=== PATIENT | male | born 1950 | race Caucasian/White ===

== ENCOUNTER 2020-03-01 09:08 | Emergency (ER) | payer OTHER ==
--- NOTE | 2020-03-01 09:52 | RAD REPORT ---
EXAM DESCRIPTION: CT - Head Brain Wo Cont - 03/01/2020 9:47 am CLINICAL HISTORY: Blurry vision Headache, drowsiness COMPARISON: No comparisons TECHNIQUE: All CT scans are performed using dose optimization technique as appropriate and may inclu de automated exposure control or mA/KV adjustment according to patient size. FINDINGS: No intracranial hemorrhage, hydrocephalus or extra-axial fluid collection.Mild brain atrop hy.No areas of brain edema or evidence of midline shift. The paranasal sinuses and mastoids are clear. The calvarium is intact. IMPRESSION: No acute intracranial abnormality.
[2020-03-01 10:21] LABS: Absolute Lymphocytes (CBC) 0.6 K/uL (0.7-4.9); Basophils % 0.4 % (0-1.3); Hematocrit 47.2 % (39.6-49.0); Lymphocytes % 10.6 % (15.3-44.8); MPV 9.1 fL (7.6-11.3); RBC Red Blood Cell Count 5.21 M/uL (4.33-5.43)
[2020-03-01 10:28] LABS: Protime INR 1.05
[2020-03-01] MEDS ORDERED: FLUORESCEIN SODIUM 1 MG/WRAP ONE (10:30)
[2020-03-01] MEDS ORDERED: TETRACAINE HCL 0.5% 4ML OPTH ONE (10:30)
[2020-03-01 10:34] LABS: Potassium 4.2 mmol/L (3.5-5.1)
--- NOTE | 2020-03-01 11:04 | ER ---
Nurse's Notes [facility] Name: Wade Price Age: 69 yrs Sex: Male : 1950 Arrival Date: 03/01/2020 Time: 09:12 Bed 8 Private MD: Diagnosis: Diplopia;Cerebral infarction Presentation: 03/01 09:29 Chief complaint: Patient states: yesterday around 0700 pt noticed that his vision was sv double/blurry right in front of his vision but not above or below his field of vision with both eyes. c/o temporal head pressure. Coronavirus screen: Client denies travel out of the [place] in the last 14 days. At this time, the client does not indicate any symptoms associated with coronavirus-19. The client reports previous COVID testing was negative. Date of collection: January 2020. Ebola Screen: No symptoms or risks identified at this time. Initial Sepsis Screen: Does the patient meet any 2 criteria? HR > 90 bpm. No. Patient's initial sepsis screen is negative. Does the patient have a suspected source of infection? No. Patient's initial sepsis screen is negative. Risk Assessment: Do you want to hurt yourself or someone else? Patient reports no desire to harm self or others. Onset of symptoms was February 29, 2020. 09:29 Method Of Arrival: Ambulatory sv 09:29 Acuity: RAMÓN 3 sv Historical: - Allergies: 09:33 No Known Allergies; sv - Home Meds: 09:33 finasteride 5 mg oral tab 1 tab once daily [Active]; Flomax 0.4 mg Oral cp24 1 cap once sv daily [Active]; lisinopril 10 mg Oral tab [Active]; Protonix 40 mg Oral TbEC [Active]; - PMHx: 09:33 Hypertension; enlarged prostate; sv - Immunization history:: Adult Immunizations unknown. - Social history:: Smoking status: unknown. Screenin:53 Abuse screen: Denies threats or abuse. Denies injuries from another. Nutritional hb screening: No deficits noted. Tuberculosis screening: No symptoms or risk factors identified. Fall Risk None identified. Assessment: 10:00 General: Appears in no apparent distress. comfortable, well groomed, Behavior is calm, ph cooperative, appropriate for age, Denies fever, feeling ill. Pain: Complains of pain in right evangelical and left evangelical Pain currently is 2 out of 10 on a pain scale. Neuro: Level of Consciousness is awake, alert, obeys commands, Oriented to person, place, time, situation, Reports blurred vision headache. Cardiovascular: Capillary refill < 3 seconds in bilateral fingers Patient's skin is warm and dry. Respiratory: Airway is patent Respiratory effort is even, unlabored, Respiratory pattern is regular, symmetrical. EENT: Reports blurred vision. Derm: Skin is intact, is healthy with good turgor, Skin is pink, warm \\T\\ dry. Musculoskeletal: Circulation, motion, and sensation intact. Range of motion: intact in all extremities. 11:00 Reassessment: Patient appears in no apparent distress at this time. Patient and/or hb family updated on plan of care and expected duration. Pain level reassessed. Patient is alert, oriented x 3, equal unlabored respirations, skin warm/dry/pink. 11:54 Reassessment: Patient appears in no apparent distress at this time. Patient and/or hb family updated on plan of care and expected duration. Pain level reassessed. Patient is alert, oriented x 3, equal unlabored respirations, skin warm/dry/pink. 12:35 Reassessment: Patient appears in no apparent distress at this time. Patient and/or hb family updated on plan of care and expected duration. Pain level reassessed. Patient is alert, oriented x 3, equal unlabored respirations, skin warm/dry/pink. 12:49 Reassessment: Patient appears in no apparent distress at this time. Patient and/or ph family updated on plan of care and expected duration. Pain level reassessed. Patient is alert, oriented x 3, equal unlabored respirations, skin warm/dry/pink. Pt ambulated to restroom w/ steady gait, denies dizziness or weakness. 13:22 Reassessment: Attempted to call report to [facility], receiving nurse refused to take report, states, " We are at capacity and I can not take report.". Vital Signs: 09:29 BP 149 / 70; Pulse 116; Resp 16; Temp 99.2; Pulse Ox 99% ; Weight 95.25 kg; Height 5 sv ft. 10 in. (177.80 cm); 10:45 BP 147 / 77; Pulse 91; Resp 19; Pulse Ox 99% on R/A; hb 11:45 BP 137 / 81; Pulse 108; Resp 16; Pulse Ox 98% on R/A; hb 12:30 BP 140 / 88; Pulse 114; Resp 20; Pulse Ox 98% on R/A; Pain 0/10; hb 13:47 BP 137 / 86; Pulse 104; Resp 18; Temp 98.8; Pulse Ox 99% on R/A; ph 14:46 BP 146 / 84; Pulse 101; Resp 16; Temp 98.0; Pulse Ox 96% on R/A; ph 09:29 Body Mass Index 30.13 (95.25 kg, 177.80 cm) sv NIH Stroke Scale Scores: 11:49 NIHSS Score: 0 pm1 14:17 NIHSS Score: 0 pm1 ED Course: 09:12 Patient arrived in ED. rg4 09:19 Gonsalo Monsivais NP is PHCP. pm1 09:19 Srinivas Urena MD is Attending Physician. pm1 09:32 Triage completed. sv 09:33 Arm band placed on Patient placed in an exam room, on a stretcher. sv 09:47 CT Head Brain wo Cont In Process Unspecified. EDMS 10:00 Missed attempt(s): 20 gauge in right forearm. Bleeding controlled, band aid applied, dh3 catheter tip intact. 10:04 Initial lab(s) drawn, by me, sent to lab. Inserted saline lock: 20 gauge in right dh3 antecubital area, using aseptic technique. Blood collected. 10:10 EKG done, by ED staff, reviewed by Gonsalo Monsivais NP. 3 10:15 Josy Walker, RN is Primary Nurse. ph 11:23 Patient has correct armband on for positive identification. Pulse ox on. NIBP on. Door ph closed. Noise minimized. Warm blanket given. 11:25 No provider procedures requiring assistance completed. IV discontinued, intact, ph bleeding controlled, No redness/swelling at site. Pressure dressing applied. 12:33 initiated a transfer with CANELO Dao from the [facility] Transfer [place]. eb 12:[address] Suazo the paint roller winder compensation/benefits specialist for [facility] with Gonsalo Mosley for eb patient transfer consultation. 12:[address] Michel the hospitalist compensation/benefits specialist for [facility] with Gonsalo Mosley for eb patient transfer consultation. 12:50 administrative approval given by CANELO Dao/ patient has been accepted to [facility] eb [address] [place] bed 2462/ Dr. Michel has accepted the patient in transfer/ report to be called [phone]. Administered Medications: 10:30 Drug: Tetracaine Drops 0.5 % 1 drops Route: Ophthalmic; Site: both eyes; ph 14:47 Follow up: Response: No adverse reaction ph 12:49 Drug: Aspirin 325 mg Route: PO; ph 14:47 Follow up: Response: No adverse reaction ph 13:47 Drug: Lipitor 80 mg Route: PO; ph 14:47 Follow up: Response: No adverse reaction ph Outcome: 11:04 Discharge ordered by MD. pm1 12:04 ER care complete, transfer ordered by . pm1 14:44 Patient left the ED. sv 14:44 Transferred by ground EMS [facility]. to [facility], Transfer ph form completed. X-rays sent w/ patient. 14:44 Condition: good 14:44 Instructed on the need for transfer. NIH Stroke Scale - NIH Stroke Score Date: 03/01/2020 Time: 11:49 Total Score = 0 1a. Level of Consciousness (LOC) - 0(Alert) 1b. Level of Consciousness (LOC) (Year \\T\\ Age) - 0(Both) 1c. LOC Commands (Open \\T\\ Closes Eyes/Sheet Rock Installer) - 0(Both) 2. Best Gaze (Lateral Gaze Paresis) - 0(Normal) 3. Visual Field Loss - 0(No visual loss) 4. Facial Palsy - 0(Normal) 5a. Left Arm: Motor (10-second hold) - 0(No drift) 5b. Right Arm: Motor (10-second hold) - 0(No drift) 6a. Left Leg: Motor (5-second hold - always test supine) - 0(No drift) 6b. Right Leg: Motor (5-second hold - always test supine) - 0(No drift) 7. Limb Ataxia (finger/nose \\T\\ heel/lorenz - test with eyes open) - 0(Absent) 8. Sensory Loss (pinprick arms/legs/face) - 0(Normal) 9. Best Language: Aphasia (description/naming/reading) - 0(No aphasia) 10. Dysarthria (speech clarity - read or repeat words) - 0(Normal) 11. Extinction and Inattention (visual/tactile/auditory/spatial/personal) - 0(No abnormality) Initials: pm1 NIH Stroke Scale - NIH Stroke Score Date: 03/01/2020 Time: 14:17 Total Score = 0 1a. Level of Consciousness (LOC) - 0(Alert) 1b. Level of Consciousness (LOC) (Year \\T\\ Age) - 0(Both) 1c. LOC Commands (Open \\T\\ Closes Eyes/Sheet Rock Installer) - 0(Both) 2. Best Gaze (Lateral Gaze Paresis) - 0(Normal) 3. Visual Field Loss - 0(No visual loss) 4. Facial Palsy - 0(Normal) 5a. Left Arm: Motor (10-second hold) - 0(No drift) 5b. Right Arm: Motor (10-second hold) - 0(No drift) 6a. Left Leg: Motor (5-second hold - always test supine) - 0(No drift) 6b. Right Leg: Motor (5-second hold - always test supine) - 0(No drift) 7. Limb Ataxia (finger/nose \\T\\ heel/lorenz - test with eyes open) - 0(Absent) 8. Sensory Loss (pinprick arms/legs/face) - 0(Normal) 9. Best Language: Aphasia (description/naming/reading) - 0(No aphasia) 10. Dysarthria (speech clarity - read or repeat words) - 0(Normal) 11. Extinction and Inattention (visual/tactile/auditory/spatial/personal) - 0(No abnormality) Initials: pm1 Signatures: Dispatcher [employer] Skylar Marsh RN RN Josy Walker RN RN ph Marinas, Patrick, JUMA CIRCULAR HEAD SAW OPERATOR pm1 Dimple Tanner RN RN hb Garcia, Rubi rg4 Herrera, Deanna 3 Sarahi Meza
--- NOTE | 2020-03-01 11:04 | EDPHYS ---
Physician Documentation [facility] Name: Wade Price Age: 69 yrs Sex: Male : 1950 Arrival Date: 03/01/2020 Time: 09:12 Bed 8 Private MD: ED Physician Srinivas Urena HPI: 03/01 09:46 This 69 yrs old Male presents to ER via Ambulatory with complaints of Vision pm1 Problem. 09:46 The patient is experiencing blurred vision, double vision, to both eyes, caused by an pm1 unknown mechanism. Onset: The symptoms/episode began/occurred while working on the yard, started with bilateral blurry vision. Duration: the symptoms are continuous. Aggravated by nothing. Alleviated by covering/ closing either eye. Associated signs and symptoms: Pertinent positives: headache, sinus congestion, post nasal drainage. Patient wears glasses. Severity of symptoms: in the emergency department the symptoms are unchanged. The patient has not experienced similar symptoms in the past. The patient has not recently seen a physician. Patient with onset of blurry vision while working on his house/yard on . He noticed that the grass appeared blurry. Woke up 7:00 AM and he had double vision with both eyes. False image appears above the actual object. Resolves with closing either eye. No eye pain, tearing , or swelling. Reports he possibly had some dirt in his eyes. Historical: - Allergies: 09:33 No Known Allergies; sv - Home Meds: 09:33 finasteride 5 mg oral tab 1 tab once daily [Active]; Flomax 0.4 mg Oral cp24 1 cap once sv daily [Active]; lisinopril 10 mg Oral tab [Active]; Protonix 40 mg Oral TbEC [Active]; - PMHx: 09:33 Hypertension; enlarged prostate; sv - Immunization history:: Adult Immunizations unknown. - Social history:: Smoking status: unknown. ROS: 09:46 Constitutional: Negative for fever, chills, and weight loss. pm1 09:46 Cardiovascular: Negative for chest pain, palpitations, and edema, Respiratory: Negative for shortness of breath, cough, wheezing, and pleuritic chest pain, Abdomen/GI: Negative for abdominal pain, nausea, vomiting, diarrhea, and constipation, Back: Negative for injury and pain, MS/Extremity: Negative for injury and deformity, Skin: Negative for injury, rash, and discoloration. 09:46 Eyes: Positive for blurry vision, Double vision, Negative for discharge, pain, redness, tearing. 09:46 ENT: Positive for sinus congestion with frontal headache. + post nasal drainage. 09:46 Neuro: Negative for numbness, tingling, weakness. Exam: 09:46 Constitutional: This is a well developed, well nourished patient who is awake, alert, pm1 and in no acute distress. Eyes: Pupils equal round and reactive to light, extra-ocular motions intact. Lids and lashes normal. Conjunctiva and sclera are non-icteric and not injected. Cornea within normal limits. Periorbital areas with no swelling, redness, or edema. 09:46 Back: No spinal tenderness. No costovertebral tenderness. Full range of motion. Skin: Warm, dry with normal turgor. Normal color with no rashes, no lesions, and no evidence of cellulitis. MS/ Extremity: Pulses equal, no cyanosis. Neurovascular intact. Full, normal range of motion. 09:46 Cardiovascular: Exam negative for acute changes, Rate: normal, Rhythm: regular, Pulses: no pulse deficits are appreciated, Edema: is not appreciated. 09:46 Respiratory: Exam negative for acute changes, respiratory distress, shortness of breath. 09:46 Abdomen/GI: Inspection: abdomen appears normal, Palpation: abdomen is soft and non-tender, in all quadrants. 09:46 Neuro: Orientation: is normal, Mentation: is normal, Cranial nerves: CN II- XII are normal as tested, extraocular movements are intact, Motor: is normal, moves all fours, Sensation: is normal, no obvious gross deficits. Vital Signs: 09:29 BP 149 / 70; Pulse 116; Resp 16; Temp 99.2; Pulse Ox 99% ; Weight 95.25 kg; Height 5 sv ft. 10 in. (177.80 cm); 10:45 BP 147 / 77; Pulse 91; Resp 19; Pulse Ox 99% on R/A; hb 11:45 BP 137 / 81; Pulse 108; Resp 16; Pulse Ox 98% on R/A; hb 12:30 BP 140 / 88; Pulse 114; Resp 20; Pulse Ox 98% on R/A; Pain 0/10; hb 13:47 BP 137 / 86; Pulse 104; Resp 18; Temp 98.8; Pulse Ox 99% on R/A; ph 14:46 BP 146 / 84; Pulse 101; Resp 16; Temp 98.0; Pulse Ox 96% on R/A; ph 09:29 Body Mass Index 30.13 (95.25 kg, 177.80 cm) sv NIH Stroke Scale Scores: 11:49 NIHSS Score: 0 pm1 14:17 NIHSS Score: 0 pm1 MDM: 09:31 Patient medically screened. pm1 11:01 Data reviewed: vital signs. pm1 11:57 Physician consultation: Vitaliy Torrez MD after a discussion of the case, a pm1 recommendation for transfer for higher level of care is made, MRI unavailable until Tuesday. 11:57 ED course: Onset of symptoms greater than treatment window for TPA. No TPA given. pm1 12:05 Counseling: I had a detailed discussion with the patient and/or guardian regarding: the pm1 historical points, exam findings, and any diagnostic results supporting the discharge/admit diagnosis, lab results, radiology results, the need to transfer to another facility. 12:55 Physician consultation: Physician consultation: MD Michel regarding regarding pm1 transfer, patient's condition, and will see patient would like medications started, Lipitor 80 mg. 03/01 09:35 Order name: Basic Metabolic Panel; Complete Time: 10:59 pm03/01 09:35 Order name: CBC with Diff; Complete Time: 10:24 pm03/01 09:35 Order name: Protime (+inr); Complete Time: 10:59 pm03/01 09:35 Order name: Ptt, Activated; Complete Time: 10:59 pm03/01 14:34 Order name: SARS-COV-2 RT PCR EDMS 03/01 09:35 Order name: CT Head Brain wo Cont; Complete Time: 09:59 pm03/01 09:35 Order name: EKG; Complete Time: 09:36 pm03/01 09:35 Order name: EKG - Nurse/Tech; Complete Time: 10:18 pm03/01 09:35 Order name: IV Saline Lock; Complete Time: 10:18 pm03/01 09:35 Order name: Visual Acuity; Complete Time: 12:28 pm03/01 09:35 Order name: Eye Tray; Complete Time: 10:19 pm1 03/01 09:35 Order name: Fluoresene Opth strip; Complete Time: 10:19 pm1 Administered Medications: 10:30 Drug: Tetracaine Drops 0.5 % 1 drops Route: Ophthalmic; Site: both eyes; ph 14:47 Follow up: Response: No adverse reaction ph 12:49 Drug: Aspirin 325 mg Route: PO; ph 14:47 Follow up: Response: No adverse reaction ph 13:47 Drug: Lipitor 80 mg Route: PO; ph 14:47 Follow up: Response: No adverse reaction ph Disposition: 17:50 Co-signature as Attending Physician, Srinivas Urena MD I agree with the assessment and kdr plan of care. Disposition: 03/01/20 12:04 Transfer ordered to [facility]. Diagnosis are Cerebral infarction, Diplopia. - Reason for transfer: Higher level of care. - Accepting physician is [facility]. - Condition is Stable. - Problem is new. - Symptoms are unchanged. NIH Stroke Scale - NIH Stroke Score Date: 03/01/2020 Time: 11:49 Total Score = 0 1a. Level of Consciousness (LOC) - 0(Alert) 1b. Level of Consciousness (LOC) (Year \T\ Age) - 0(Both) 1c. LOC Commands (Open \T\ Closes Eyes/Seafood Clerk) - 0(Both) 2. Best Gaze (Lateral Gaze Paresis) - 0(Normal) 3. Visual Field Loss - 0(No visual loss) 4. Facial Palsy - 0(Normal) 5a. Left Arm: Motor (10-second hold) - 0(No drift) 5b. Right Arm: Motor (10-second hold) - 0(No drift) 6a. Left Leg: Motor (5-second hold - always test supine) - 0(No drift) 6b. Right Leg: Motor (5-second hold - always test supine) - 0(No drift) 7. Limb Ataxia (finger/nose \T\ heel/lorenz - test with eyes open) - 0(Absent) 8. Sensory Loss (pinprick arms/legs/face) - 0(Normal) 9. Best Language: Aphasia (description/naming/reading) - 0(No aphasia) 10. Dysarthria (speech clarity - read or repeat words) - 0(Normal) 11. Extinction and Inattention (visual/tactile/auditory/spatial/personal) - 0(No abnormality) Initials: pm1 NIH Stroke Scale - NIH Stroke Score Date: 03/01/2020 Time: 14:17 Total Score = 0 1a. Level of Consciousness (LOC) - 0(Alert) 1b. Level of Consciousness (LOC) (Year \T\ Age) - 0(Both) 1c. LOC Commands (Open \T\ Closes Eyes/Seafood Clerk) - 0(Both) 2. Best Gaze (Lateral Gaze Paresis) - 0(Normal) 3. Visual Field Loss - 0(No visual loss) 4. Facial Palsy - 0(Normal) 5a. Left Arm: Motor (10-second hold) - 0(No drift) 5b. Right Arm: Motor (10-second hold) - 0(No drift) 6a. Left Leg: Motor (5-second hold - always test supine) - 0(No drift) 6b. Right Leg: Motor (5-second hold - always test supine) - 0(No drift) 7. Limb Ataxia (finger/nose \T\ heel/lorenz - test with eyes open) - 0(Absent) 8. Sensory Loss (pinprick arms/legs/face) - 0(Normal) 9. Best Language: Aphasia (description/naming/reading) - 0(No aphasia) 10. Dysarthria (speech clarity - read or repeat words) - 0(Normal) 11. Extinction and Inattention (visual/tactile/auditory/spatial/personal) - 0(No abnormality) Initials: pm1 Signatures: Dispatcher [employer] Skylar Marsh RN RN sv Rittger, Kevin, MD MD [facility] Josy Walker RN RN Gonsalo Morin, JUMA CERTIFIED RECREATIONAL THERAPIST pm1 Corrections: (The following items were deleted from the chart) 11:36 11:04 03/01/2020 11:04 Discharged to Home. Impression: Other visual pm1 disturbances. Condition is Stable. Forms are Medication Reconciliation Form, Thank You Letter, Antibiotic Education, Prescription Opioid Use. Follow up: Emergency Department; When: As needed; Reason: Worsening of condition. Follow up: Private Physician; When: 2 - 3 days; Reason: Recheck today's complaints, Continuance of care, Re-evaluation by your physician. Problem is new. Symptoms have improved. pm1 12:58 12:36 CORONAVIRUS+MR.LAB.BRZ ordered. EDMS EDMS 14:15 11:01 Counseling: I had a detailed discussion with the patient and/or guardian pm1 regarding: the historical points, exam findings, and any diagnostic results supporting the discharge/admit diagnosis, lab results, radiology results, the need for outpatient follow up, an opthalmologist, to return to the emergency department if symptoms worsen or persist or if there are any questions or concerns that arise at home, pm1 14:44 12:04 03/01/2020 12:04 Transfer ordered to [facility]. Diagnosis is Cerebral infarctionDiplopia. Reason for transfer: Higher level of care. Accepting physician is [facility]. Condition is Stable. Problem is new. Symptoms are unchanged. pm1
[2020-03-01] MEDS ORDERED: ASPIRIN EC 325 MG TABLET PO ONE (12:54)
[2020-03-01] MEDS ORDERED: ATORVASTATIN 20 MG TAB ONE (13:57)
[2020-03-01 14:58] VITALS: BP 137/86; TEMP 98.8; O2SAT 99
== END 2020-03-01 14:44 | disposition short-term general hospital (02) ==
LOC: ER 09:08
DX: I63.9 Cerebral infarction, unspecified (principal); I10 Essential (primary) hypertension; R29.700 NIHSS score 0; Z20.822 Contact with and (suspected) exposure to COVID-19
CPT/HCPCS: 93005; 85025; 80048; 36415; 85610; 85730; 70450; 99285; U0003